=== PATIENT | female | born 1945 | race Two or more races ===

== ENCOUNTER 2018-01-01 10:08 | Outpatient (CLI) | payer OTHER ==
[~2018-01-01 10:08] MED LIST: FLOMAX PO; KETO10TA2 PO
== END 2018-01-01 10:13 | disposition home or self-care (01) ==
LOC: SONOGRAMA 10:08
DX: E04.2 Nontoxic multinodular goiter (principal)

== ENCOUNTER 2018-04-17 11:48 | Outpatient (CLI) | payer OTHER | END 2018-04-17 11:50 | disposition home or self-care (01) | LOC: SONOGRAMA 11:48 | DX: N20.0 Calculus of kidney (principal) ==

== ENCOUNTER 2018-12-23 05:49 | Inpatient (IN) | payer OTHER ==
[~2018-12-23] VITALS: Ht 299.7 cm; Wt 93.4 kg
[2018-12-24] MEDS ORDERED: LOSARTAN POTASS25 MG PO (08:17)
[2018-12-24] MEDS ORDERED: PANTOPRAZOLE SO40 MG PO (08:18)
== END 2018-12-26 21:12 | DRG 481 ==
LOC: ER 05:49 → SEC-K 14:29 → SURG 14:29
PROVIDERS: ADMIT Orthopaedic Surgery
PROC: 0QU60KZ Supplement Right Upper Femur with Nonautologous Tissue Substitute, Open Approach (ICD-10-PCS; 2018-12-24)
PROC: 0QSB04Z Reposition Right Lower Femur with Internal Fixation Device, Open Approach (ICD-10-PCS; principal; 2018-12-24 10:00)
PROC: 30233N1 Transfusion of Nonautologous Red Blood Cells into Peripheral Vein, Percutaneous Approach (ICD-10-PCS; 2018-12-25)
DX: S72.451A Displaced supracondylar fracture without intracondylar extension of lower end of right femur, initial encounter for closed fracture (principal); M97.11XA Periprosthetic fracture around internal prosthetic right knee joint, initial encounter; D62 Acute posthemorrhagic anemia; I34.1 Nonrheumatic mitral (valve) prolapse; M17.12 Unilateral primary osteoarthritis, left knee; G47.33 Obstructive sleep apnea (adult) (pediatric); E78.49 Other hyperlipidemia; Z96.652 Presence of left artificial knee joint; I13.10 Hypertensive heart and chronic kidney disease without heart failure, with stage 1 through stage 4 chronic kidney disease, or unspecified chronic kidney disease; N18.3 Chronic kidney disease, stage 3 (moderate); W01.198A Fall on same level from slipping, tripping and stumbling with subsequent striking against other object, initial encounter; Y93.E8 Activity, other personal hygiene; Y92.091 Bathroom in other non-institutional residence as the place of occurrence of the external cause; Y99.8 Other external cause status

== ENCOUNTER 2019-01-15 13:43 | Inpatient (IN) | payer OTHER ==
[~2019-01-15] VITALS: Ht 157.5 cm; Wt 95.3 kg
[~2019-01-15 13:43] MED LIST changes: +LOSARTAN POTASS25 MG PO; +PANTOPRAZOLE SO40 MG PO
[2019-03-05] MEDS ORDERED: INTESTINEX680 M1 PO (14:25)
[2019-03-05] MEDS ORDERED: INTEGRA F CAPS1 EACH PO (14:25)
[2019-03-05] MEDS ORDERED: GABAPENTIN100 MG PO (14:25)
[2019-03-05] MEDS ORDERED: PANTOPRAZOLE SO40 MG PO (14:25)
[2019-03-05] MEDS ORDERED: PRE PROTEIN1 EACH PO (14:25)
[2019-03-05] MEDS ORDERED: B Complex CAPSULE PO (14:25)
[2019-03-05] MEDS ORDERED: LOSARTAN POTASS25 MG PO (14:25)
[2019-03-05] MEDS ORDERED: Vitamin B-6 PO (14:25)
[2019-03-05] MEDS ORDERED: RESTORIL15 MG PO (14:25)
[2019-03-05] MEDS ORDERED: VITAMIN C500 M1 PO (14:25)
[2019-03-05] MEDS ORDERED: LORATADINE10 MG PO (14:25)
[2019-03-05] MEDS ORDERED: Neurin-Sl Tablet Sl SL (14:25)
[2019-03-05] MEDS ORDERED: TRAM1TAB98 PO (14:25)
[2019-03-05] MEDS ORDERED: CLOTRIMAZOLE15 GM TOP (14:25)
== END 2019-03-06 14:49 | DRG 571 ==
LOC: SURG 13:43 → SEC-K 13:43 → SURH 13:43 → SURG 22:59 → MEDJ 01-20 16:03 → SURG 01-20 16:27 → SURH 02-13 16:03
PROVIDERS: ADMIT Orthopaedic Surgery
PROC: 8E0ZXY6 Isolation (ICD-10-PCS; 2019-01-15)
PROC: 02HV33Z Insertion of Infusion Device into Superior Vena Cava, Percutaneous Approach (ICD-10-PCS; 2019-01-16)
PROC: 0S9C00Z Drainage of Right Knee Joint with Drainage Device, Open Approach (ICD-10-PCS; 2019-01-17)
PROC: 3E10X8Z Irrigation of Skin and Mucous Membranes using Irrigating Substance (ICD-10-PCS; 2019-01-17)
PROC: 30233N1 Transfusion of Nonautologous Red Blood Cells into Peripheral Vein, Percutaneous Approach (ICD-10-PCS; 2019-01-17)
PROC: 0JBN0ZZ Excision of Right Lower Leg Subcutaneous Tissue and Fascia, Open Approach (ICD-10-PCS; principal; 2019-01-17 13:00)
PROC: BQ40ZZZ Ultrasonography of Right Hip (ICD-10-PCS; 2019-01-23)
PROC: BQ30ZZZ Magnetic Resonance Imaging (MRI) of Right Hip (ICD-10-PCS; 2019-01-27)
PROC: 0JBN0ZZ Excision of Right Lower Leg Subcutaneous Tissue and Fascia, Open Approach (ICD-10-PCS; 2019-01-29)
PROC: 0S9C00Z Drainage of Right Knee Joint with Drainage Device, Open Approach (ICD-10-PCS; 2019-01-29)
PROC: 3E10X8Z Irrigation of Skin and Mucous Membranes using Irrigating Substance (ICD-10-PCS; 2019-01-29)
PROC: 0JBN0ZZ Excision of Right Lower Leg Subcutaneous Tissue and Fascia, Open Approach (ICD-10-PCS; 2019-02-14)
PROC: 0S9C00Z Drainage of Right Knee Joint with Drainage Device, Open Approach (ICD-10-PCS; 2019-02-14)
PROC: 3E10X8Z Irrigation of Skin and Mucous Membranes using Irrigating Substance (ICD-10-PCS; 2019-02-14)
PROC: 0JBN0ZZ Excision of Right Lower Leg Subcutaneous Tissue and Fascia, Open Approach (ICD-10-PCS; 2019-02-22)
PROC: 0S9C00Z Drainage of Right Knee Joint with Drainage Device, Open Approach (ICD-10-PCS; 2019-02-22)
PROC: 3E10X8Z Irrigation of Skin and Mucous Membranes using Irrigating Substance (ICD-10-PCS; 2019-02-22)
DX: L03.115 Cellulitis of right lower limb (principal); D62 Acute posthemorrhagic anemia; M97.11XA Periprosthetic fracture around internal prosthetic right knee joint, initial encounter; T81.31XA Disruption of external operation (surgical) wound, not elsewhere classified, initial encounter; G47.33 Obstructive sleep apnea (adult) (pediatric); E78.49 Other hyperlipidemia; I13.10 Hypertensive heart and chronic kidney disease without heart failure, with stage 1 through stage 4 chronic kidney disease, or unspecified chronic kidney disease; N18.3 Chronic kidney disease, stage 3 (moderate); S72.351D Displaced comminuted fracture of shaft of right femur, subsequent encounter for closed fracture with routine healing; B95.61 Methicillin susceptible Staphylococcus aureus infection as the cause of diseases classified elsewhere; B96.89 Other specified bacterial agents as the cause of diseases classified elsewhere; B37.2 Candidiasis of skin and nail; M17.12 Unilateral primary osteoarthritis, left knee; M76.32 Iliotibial band syndrome, left leg; E87.6 Hypokalemia; Z96.652 Presence of left artificial knee joint; F43.29 Adjustment disorder with other symptoms; I34.1 Nonrheumatic mitral (valve) prolapse
CPT/HCPCS: 73722

== ENCOUNTER 2019-05-26 11:44 | Emergency (ER) | payer OTHER ==
[~2019-05-26] VITALS: Ht 149.9 cm; Wt 83.9 kg
[~2019-05-26 11:44] MED LIST changes: +B Complex CAPSULE PO; +CLOTRIMAZOLE15 GM TOP; +GABAPENTIN100 MG PO; +INTEGRA F CAPS1 EACH PO; +INTESTINEX680 M1 PO; +LORATADINE10 MG PO; +Neurin-Sl Tablet Sl SL; +PRE PROTEIN1 EACH PO; +RESTORIL15 MG PO; +TRAM1TAB98 PO; +VITAMIN C500 M1 PO; +Vitamin B-6 PO
[2019-05-26] MEDS ORDERED: DILTIAZEM 24HR120 MG (12:05)
[2019-05-26] MEDS ORDERED: PERCOCET 10-321 EACH (12:06)
== END 2019-05-26 13:57 | disposition home or self-care (01) ==
LOC: ER 11:44
DX: G89.18 Other acute postprocedural pain (principal); M79.651 Pain in right thigh; M54.5 Low back pain

== ENCOUNTER 2019-09-12 20:08 | Emergency (ER) | payer OTHER ==
[~2019-09-12] VITALS: Ht 152.4 cm; Wt 81.2 kg
[~2019-09-12 20:08] MED LIST changes: +DILTIAZEM 24HR120 MG; +PERCOCET 10-321 EACH
[2019-09-12] MEDS ORDERED: PEPCID20 MG (20:24)
[2019-09-12] MEDS ORDERED: LIPITOR40 M1 (20:25)
[2019-09-12] MEDS ORDERED: PROTONIX40 M1 (20:25)
== END 2019-09-12 22:57 | disposition home or self-care (01) ==
LOC: ER 20:08
DX: G89.11 Acute pain due to trauma (principal); M79.661 Pain in right lower leg; R60.0 Localized edema